=== PATIENT | male | born 1985 | race African-American/Black ===

== ENCOUNTER 2016-11-25 12:35 | Emergency (ER) | payer BC, OTHER ==
[~2016-11-25] VITALS: Ht 175.3 cm; Wt 90.0 kg
[~2016-11-25 12:35] MED LIST: NO MEDS
[2016-11-25] MEDS ORDERED: DOCU-144 PO (12:45)
[2016-11-25 12:46] VITALS: Ht 175.3 cm; Wt 90.0 kg
--- NOTE | 2016-11-25 13:06 | ERD ---
ER Documentation Chief Complaint Date/Time DATE: 11/25/16 TIME: 13:06 Chief Complaint C/O ABD PAIN AND WEAKNESS. PT A&OX4. HPI Patient is a 31-year-old male with no medical problems who presents with multiple complaints. The patient was brought in by ambulance. The patient says that last night he felt like he needed to have a bowel movement but could not have a bowel movement. He said this morning he felt the same and that his "anus was making a noise". He says "there have been different things going on with me the last few weeks". He said that he had a blood test done at [facility] 2 days ago and was found to have low platelets and has an appointment scheduled with steam conditioner filling tomorrow. He denies recent travel. He felt weak diffusely today and therefore 911 was called. Upon review of old medical records this is the patient's second visit since 2012 but review of the emergency department information exchange shows visits to 2 separate emergency departments. ROS All systems reviewed and are negative except as per history of present illness. Medications Home Meds Active Scripts Docusate Sodium* (Colace*) 100 Mg Capsule, 100 MG PO TID, #30 CAP Prov:BERNIE TOMLINSON MD 11/25/16 Reported Medications [No Meds] No Conflict Check 07/05/12 Allergies Allergies: Coded Allergies: No Known Allergy (Unverified , 07/05/12) PMhx/Soc Medical and Surgical Hx: pt denies Medical Hx Hx Alcohol Use: No Hx Substance Use: No Hx Tobacco Use: No FmHx Family History: No diabetes Physical Exam Vitals Vital Signs Date Time Temp Pulse Resp B/P Pulse Ox O2 Delivery O2 Flow Rate FiO2 11/25/16 12:46 98.6 80 19 130/86 99 Physical Exam Const: No acute distress Head: Atraumatic Eyes: Normal Conjunctiva ENT: Normal External Ears, Nose and Mouth. Neck: Full range of motion..~ No meningismus. Resp: Clear to auscultation bilaterally Cardio: Regular rate and rhythm, no murmurs Abd: Soft, non tender, non distended. Normal bowel sounds Skin: No petechiae or rashes Back: No midline or flank tenderness Ext: No cyanosis, or edema Neur: Awake and alert, no slurred speech, cranial nerves II through XII intact, strength is 5 out of 5 in all 4 extremity Psych: Normal Mood and Affect Results 24 hrs Laboratory Tests Test 11/25/16 12:45 Bedside Glucose 96mg/dL Procedures/MDM Accu-Chek is normal. EKG read by me: Rate/Rhythm: Regular rate and rhythm at a rate of 85 Intervals: Normal Impression: No evidence of ischemia or arrhythmia Patient is a 31-year-old male presents with constipation. The patient had near syncope but EKG is normal. Accu-Chek is normal. I doubt significant cardiac arrhythmia. I doubt hyper or hypoglycemia. I do not believe the patient requires further workup at this time. The patient has a scheduled appointment with his steam conditioner filling tomorrow for further workup. He can return for any worsening symptoms. The patient understands the plan is okay for discharge at this time. He will be given a prescription for Colace. Departure Diagnosis: Primary Impression: Near syncope Additional Impressions: Weakness Constipation Constipation type: unspecified constipation type Qualified Code: K59.00 - Constipation, unspecified constipation type Condition: Fair Patient Instructions: Constipation (Adult), Weakness, Unk Cause Additional Instructions: Keep the appointment with the steam conditioner filling scheduled for TOMORROW. BERNIE TOMLINSON MD November 25, 2016 13:06
== END 2016-11-25 13:38 | disposition home or self-care (01) ==
LOC: E/R 12:35
DX: R55 Syncope and collapse (principal); K59.00 Constipation, unspecified; R53.1 Weakness
CPT/HCPCS: 82962; 93005